=== PATIENT | male | born 1955 | race Caucasian/White ===

== ENCOUNTER → 2021-02-15 03:27 | Outpatient (CLI) | payer MEDICARE, SELFPAY ==
[2021-02-15 17:41] LABS: SARS-CoV-2 RNA PCR Positive
== END ==
PROVIDERS: PCP Family Medicine; Visit Provider Family Medicine
DX: U07.1 COVID-19 (principal)
CPT/HCPCS: C9803; U0003; U0005

== ENCOUNTER 2021-02-18 12:26 | Outpatient (RCR) | payer MEDICARE, SELFPAY ==
[2021-02-18] MEDS: FAMOTIDINE 20 MG TABLET PO (12:40)
[2021-02-18] MEDS: ACETAMINOPHEN 325 MG TABLET 650 MG PO (12:41)
[2021-02-18] MEDS: diphenhydrAMINE HCl CAP 25 MG CAPSULE PO (12:41)
[2021-02-18 13:06] VITALS: BP 132/75; PULSE 83; RESP 18; TEMP 36.2; O2SAT 97
--- NOTE | 2021-02-19 16:24 | PC.NURSE ---
Patient states he feels better after covid infusion.
== END 2021-02-18 16:30 | disposition home or self-care (01) ==
LOC: AMCINF 12:26
PROVIDERS: PCP Family Medicine; Referring Provider Family Medicine; Visit Provider Internal Medicine Hematology & Oncology
DX: Z23 Encounter for immunization (principal); U07.1 COVID-19
CPT/HCPCS: A9270; J7050; M0243

== ENCOUNTER 2021-07-02 07:37 | Outpatient (CLI) | payer MEDICARE, SELFPAY ==
--- NOTE | ~2021-07-02 | US_ITS ---
EXAMINATION: US right upper quadrant EXAM DATE: 07/02/2021 08:15 INDICATION: Elevated liver function tests. TECHNIQUE: Multiple grayscale and Doppler images of the abdomen right upper quadrant were obtained (b y a technologist who performed the scan) and subsequently reviewed. There is no prior study for deb andrew. FINDINGS: The pancreatic head and body are normal in appearance. The pancreatic tail is not visualized. There is echogenic liver parenchyma with poor penetration, hepatic steatosis. There are no focal liver le sions identified. There is no evidence of intrahepatic biliary duct dilation. Portal venous flow w as seen in the hepatopedal, normal direction and has normal Doppler waveform. No right-sided hydrone phrosis. Common bile duct measures 4 mm, which is normal. The gallbladder wall is normal in thickness, with ex pected amount of distention. No sonographic evidence of pericholecystic fluid. There is no cholelit hiases. Technologist performing exam reports patient did not demonstrate sonographic Ferguson's sign. Please note that this sign is less reliable in patients who have received pain medication. IMPRESSION: Hepatic steatosis. Reviewed, dictated and finalized at location A. [facility] IMPRESSION: Hepatic steatosis.
== END 2021-07-02 07:38 | disposition home or self-care (01) ==
PROVIDERS: PCP Family Medicine; Visit Provider Physician Assistant
DX: R79.89 Other specified abnormal findings of blood chemistry (principal); K76.0 Fatty (change of) liver, not elsewhere classified
CPT/HCPCS: 76705

== ENCOUNTER 2022-05-27 01:02 | Day surgery (SDC) | payer MEDICARE, SELFPAY ==
[2022-05-13 14:37] VITALS: BMI 33.8
[2022-05-27 07:20] VITALS: BP 133/82; PULSE 83; RESP 18; TEMP 36.3; O2SAT 97
--- NOTE | 2022-05-27 07:23 | PM.HPGS ---
History of Present Illness History of Present Illness Consent: Risks, benefits, and alternatives have been discussed and questions answered. Patient agrees to proceed with procedure. Chief complaint: hx of colon polyp Narrative: Mark Staley is a 67 year old male Presents for screening colonoscopy. Patient has previous history of colon polyps. Most recently an adenomatous colon polyp was removed 2016. Patient reports that his current weight appetite and bowel movements are normal. He returns for screening exam. Review of Systems Review of Systems: Review of systems noncontributory. [facility], LAT[facility] Social History Social History Smoking status: Never smoker Substance use type: does not use Living arrangements: with family Spiritual care concerns: No Meds Home Medications and Allergies Home Medications Medication Instructions Recorded Confirmed Type atenolol 25 mg tablet 25 mg PO DAILY 02/18/21 05/13/22 History atorvastatin 10 mg tablet 10 mg PO 3XW 02/18/21 05/13/22 History lisinopril 20 1 tablet PO BID 02/18/21 05/13/22 History mg-hydrochlorothiazide 12.5 mg tablet metformin 500 mg tablet 500 mg PO BID 02/18/21 05/13/22 History omeprazole 20 mg capsule,delayed 20 mg PO DAILY 02/18/21 05/13/22 History release Allergies Allergy/AdvReac Type Severity Reaction Status Date / Time No Known Allergies Allergy Verified 05/27/22 07:18 Vital Signs Vital Signs - 24 hr 05/27/22 07:20 Temperature 97.4 F L Pulse Rate 83 Respiratory Rate 18 Blood Pressure 133/82 Pulse Oximetry 97 Oxygen Delivery Room Air Exam Narrative: Physical exam reveals patient to be alert. Vital signs stable. HEENT exam is unremarkable. Patient is anicteric. Lungs are clear to auscultation and percussion. Heart is without murmur or extra sounds. Abdomen bowel sounds are present soft nontender with no organomegaly. Digital external rectal exam is normal. Assessment and Plan Assessment and plan (1) History of colon polyps: Code(s): Z86.010 - Personal history of colonic polyps Status: Acute Assessment and Plan: Patient has a history of colon polyps. Plan for surveillance colonoscopy now. consider follow-up at 5 year intervals. Further recommendations may be given after endoscopy.
[2022-05-27] MEDS: LACTATED RINGERS 1,000 ML 150 ML IV CONT (07:28)
--- NOTE | 2022-05-27 08:28 | P.PNAN_ITS ---
Anes - Initial Pre Proc Eval Procedure: Operation Date: 05/27/22 08:30 Proposed Procedures p Screening Colonoscopy - Mark Pratt MD Date/Time: 05/27/22 08:28 Surgeon: Mark Pratt MD Pre Op Diagnosis: hx of colon polyp Patient Data Age: 67 Gender: M Height: 1.73 m Weight: 98.8 kg Last Vital Signs Temp 97.4 F L 05/27/22 07:20 Pulse 83 05/27/22 07:20 Resp 18 05/27/22 07:20 BP 133/82 05/27/22 07:20 Pulse Ox 97 05/27/22 07:20 O2 Del Method Room Air 05/27/22 07:20 Allergies Allergy/AdvReac Type Severity Reaction Status Date / Time No Known Allergies Allergy Verified 05/27/22 07:18 Home Medications Medication Instructions Recorded Confirmed Type atenolol 25 mg tablet 25 mg PO DAILY 02/18/21 05/13/22 History atorvastatin 10 mg tablet 10 mg PO 3XW 02/18/21 05/13/22 History lisinopril 20 1 tablet PO BID 02/18/21 05/13/22 History mg-hydrochlorothiazide 12.5 mg tablet metformin 500 mg tablet 500 mg PO BID 02/18/21 05/13/22 History omeprazole 20 mg capsule,delayed 20 mg PO DAILY 02/18/21 05/13/22 History release Patient hx anesthesia problems: none Family hx anesthesia problems: none Results Review: All pre-operative results and documents have been reviewed as part of the pre- operative evaluation. PMFSH Social History Social History Smoking status: Never smoker Substance use type: does not use Living arrangements: with family Spiritual care concerns: No Anes - Eval Final PreProcedure Day of Procedure 05/27/22 08:28 Patient weight: obese Heart: regular rate and rhythm Lungs: clear to auscultation Airway: Mallampati scale class II Neurological: alert and oriented Last oral intake: >/= 8 hours ASA classification: III Emergent: no Anesthetic plan: proceed Anesthesia type and monitoring: general GIVS and standard monitoring Results Review: All pre-operative results and documents have been reviewed as part of the pre- operative evaluation. Informed Consent: The patient's anesthetic plan and its attendant risks and benefits were discussed with the patient/family/POA. Questions were solicited and answers provided to the satisfaction of the patient/family/POA.
[2022-05-27 08:59] VITALS: BP 108/73; PULSE 91; RESP 18; O2SAT 96
[2022-05-27 09:09] VITALS: BP 114/70; PULSE 81; RESP 14; O2SAT 97
[2022-05-27 09:19] VITALS: BP 117/78; PULSE 65; RESP 14; O2SAT 97
[2022-05-27 09:29] VITALS: BP 115/74; PULSE 67; RESP 17; O2SAT 96
== END 2022-05-27 09:37 | disposition home or self-care (01) ==
PROVIDERS: PCP Family Medicine; Visit Provider Internal Medicine Gastroenterology
PROC: 0DJD8ZZ Inspection of Lower Intestinal Tract, Via Natural or Artificial Opening Endoscopic (ICD-10-PCS; CPT 45378; principal; 2022-05-27 08:30)
DX: Z12.11 Encounter for screening for malignant neoplasm of colon (principal); D12.2 Benign neoplasm of ascending colon; D12.5 Benign neoplasm of sigmoid colon; K64.8 Other hemorrhoids; Z79.84 Long term (current) use of oral hypoglycemic drugs; E66.9 Obesity, unspecified; Z68.33 Body mass index [BMI] 33.0-33.9, adult
CPT/HCPCS: 45385; 88305; 88342; J2704; J7120

== ENCOUNTER 2024-01-26 08:15 | Outpatient (CLI) | payer MEDICARE, SELFPAY ==
--- NOTE | ~2024-01-26 | US_ITS ---
COMPLETE ABDOMINAL ULTRASOUND Ordering provider: Gordo Hopkins MD History: . K75.81 - Nonalcoholic steatohepatitis ([place]) . Comparison: None. FINDINGS: LIVER: Normal size. Increased echogenicity. No focal hepatic lesions or perihepatic fluid collections are identified. Normal flow of the portal vein. GALLBLADDER: Unremarkable. No evidence for stones, sludge, gallbladder wall thickening or pericholecy stic fluid collections. A negative sonographic Ferguson's sign was noted. BILIARY DUCTS: No evidence for intra or extrahepatic biliary dilation. Common bile duct measures 7.5 mm in diameter which is within normal limits. PANCREAS: Partially seen. SPLEEN: Normal size, echotexture and contour and measures 10.3 cm in length. KIDNEYS: Right measures 11.5x 6.2x 5.4 cm in length and the left 13.6x 6.3x 6.7 cm in length. There i s no evidence for hydronephrosis, solid renal mass, renal calculi or perinephric fluid collections. L eft renal cyst in the superior pole measuring 4.6 x 4.5 x 4.7 cm. UPPER ABDOMINAL AORTA: Normal in caliber. IVC: Patent. FREE FLUID: None. IMPRESSION: Fat infiltration of the liver. Left kidney cyst. Otherwise, unremarkable Complete ultrasound of the a bdomen. Reviewed, dictated and finalized at location A. IMPRESSION: Fat infiltration of the liver. Left kidney cyst. Otherwise, unremarkable Comple te ultrasound of the abdomen.
== END 2024-01-26 08:16 | disposition home or self-care (01) ==
LOC: ANHIMG 08:19
PROVIDERS: PCP Family Medicine; Visit Provider Family Medicine
DX: K75.81 Nonalcoholic steatohepatitis (NASH) (principal)
CPT/HCPCS: 76700

== ENCOUNTER 2024-10-12 08:44 | Outpatient (CLI) | payer MEDICARE, SELFPAY ==
--- NOTE | ~2024-10-12 | CT_ITS ---
CT of the Abdomen and Pelvis: Indication: Hematuria Technique: 2.5 mm axial scans were obtained through the abdomen and pelvis prior to and following in travenous administration of 130 cc of Omnipaque 350. Dose reduction technique was used on this scan b y utilizing automated exposure control and iterative reconstruction technique. The dose-length produc t (DLP) was 2544.30 mGy-cm. Findings: Scans through the lung bases demonstrate mild bibasilar scarring. 3 mm left lower lobe nod ule present. 4 mm right lower lobe nodule present. Additional 5 mm right lower lobe nodule present. The liver, spleen, pancreas, gallbladder, adrenals and kidneys are within normal limits, aside from l eft renal cyst. There are atherosclerotic calcifications of the aorta. No lymphadenopathy. No bowel obstruction or bowel wall thickening. There is no evidence to suggest acute appendicitis. Images through the pelvis were performed. Urinary bladder unremarkable. Prostate gland is enlarged. N o ascites. Impression: No distinct etiology for hematuria. Enlarged prostate gland. Subcentimeter bibasilar pulmonary nodules. These are most likely benign. For a high-risk patient, con macaroni maker 12 month follow-up CT. Reviewed, dictated and finalized at [facility]. Impression: No distinct etiology for hematuria. Enlarged prostate gland. Subcentimeter bibasilar pulmonary nodules. These are most likely benign. For a high-risk patient, consider 12 month follow-up CT.
--- OUTSIDE RECORDS SUMMARY | 2024-10-12 08:49 | XMS_ITS | Continuity of Care Document ---
Author Organization [facility] Address [address] [place] [address] Phone Care Team Providers Care Dedicated Regional Driver Name Role Phone Blanche Vallejo Unavailable Unavailable Advance Directives Directive Yes / No Effective Date File Name No Information Encounters Encounter Description Practice Location Reason(s) For Visit Diagnoses Date Provider Providers Copied on Encounter [facility], [address], [place], [place], [id number], [place] tel:[phone] [facility] No Information [address] , [address], [place], [address], [place]. tel:[phone] Family History Family Member Type Diagnosis Age At Onset No Information Payers Payer name Insurance type Covered republican ID Authoriza tion(s) No Information Social History Type Description Quantity Date Captured Comments Sex Male Smoking Status No Information Chief Complaint And Reason For Visit No Information Reason For Referral Reason For Referral No Information History Of Present Illness Encounter Date Complaint History Of Prese nt Illness No Information Functional Status Date Functional Assessmen t No Information Instructions Date Instruction Additional Infor mation No Information Assessments Type Assessment Date No Information Patient Care Teams Name Effective Dates (start - stop) Status Members No Information
== END 2024-10-12 08:45 | disposition home or self-care (01) ==
PROVIDERS: PCP Family Medicine; Visit Provider Family Medicine
DX: N40.0 Benign prostatic hyperplasia without lower urinary tract symptoms (principal); R91.8 Other nonspecific abnormal finding of lung field
CPT/HCPCS: 74178; Q9967